=== PATIENT | female | born 1965 | race Caucasian/White ===

== ENCOUNTER 2016-04-28 10:32 | Emergency (ER) | payer BC ==
[2016-04-28 10:45] VITALS: RESP 18
[2016-04-28] MEDS ORDERED: SODIUM CHLORIDE 0.9% 1,000 ML IV STA (10:54)
[2016-04-28] MEDS ORDERED: METOCLOPRAMIDE 5 MG/ML 2 ML VIAL IVP STA (10:54)
[2016-04-28 11:33] LABS: Basophils # (A) 0.1 k/uL (0-0.2); Basophils % (A) 2 %; CH 31.4; CHCM 33.8; Eosinophils # (A) 0.1 k/uL (0-0.7); Eosinophils % (A) 1 %; HCT 46.8 % (34.0-46.0); HDW 2.66; HGB 15.1 gm/dL (11.4-16.0); Luc # (Auto) 0.13; Luc % (Auto) 2; Lymphocytes # (A) 1.6 k/uL (1.0-4.8); Lymphocytes % (A) 20 %; MCH 30.2 pg (25.0-35.0); MCHC 32.3 g/dL (31.0-37.0); MCV 93.4 fL (80.0-100.0); Mean Platelet Volume 7.7; Monocytes # (A) 0.5 k/uL (0-1.0); Monocytes % (A) 6 %; Neutrophils # (A) 5.8 k/uL (1.3-7.7); Neutrophils % (A) 70 %; RBC 5.01 m/uL (3.80-5.40); RDW 13.4 % (11.5-15.5); WBC 8.3 k/uL (3.8-10.6); WBC (Perox) 7.97
--- NOTE | 2016-04-28 11:41 | XR ---
EXAMINATION TYPE: XR KUB DATE OF EXAM: 04/28/2016 11:37 AM COMPARISON: 09/13/2013 HISTORY: Pain TECHNIQUE: One view abdominal series FINDINGS: The osseous structures are intact. The bowel gas pattern is nonspecific. Surgical clips in the right upper quadrant. Calcifications in the pelvis are likely vascular. Soft tissue ossification adjacent to the right greater trochanter. Arthropathy of the hips. There are scattered air-fluid levels. IMPRESSION: 1. Nonspecific abdomen. Scattered air-fluid levels seen enteritis or ileus.
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
[2016-04-28 11:48] LABS: ALT 74 U/L (9-52); AST 40 U/L (14-36); Alkaline Phosphatase 135 U/L (38-126); Amylase 42 U/L (30-110); Anion Gap 14 mmol/L; Blood Urea Nitrogen 21 mg/dL (7-17); Calcium 9.2 mg/dL (8.4-10.2); Carbon Dioxide 25 mmol/L (22-30); Chloride 105 mmol/L (98-107); Glucose 95 mg/dL (74-99); Non-African American GFR(MDRD) >60 (>60 ml/min/1.73 sqM); Potassium 4.1 mmol/L (3.5-5.1); Sodium 144 mmol/L (137-145); Total Bilirubin 1.1 mg/dL (0.2-1.3); Total Protein 7.9 g/dL (6.3-8.2)
[2016-04-28 11:49] LABS: Amorphous Sediment,Urine Rare /hpf; Appearance,Urine Cloudy (Clear); Bacteria,Urine Rare /hpf; Bilirubin,Urine Negative (Negative); Glucose,Urine (UA) Negative (Negative); Ketones,Urine Negative (Negative); Leukocyte Esterase,Urine Small (Negative); Mucus,Urine Many /hpf; Nitrite,Urine Negative (Negative); PH, Urine 5.5 (5.0-8.0); Particle Count 9427; Protein,Urine Trace (Negative); RBC,Urine 3 /hpf (0-5); Specific Gravity,Urine 1.027 (1.001-1.035); Squamous Epithelial Cell,Urine 5 /hpf (0-4); UA Billing (MACRO vs. MICRO) MICRO; Urobilinogen,Urine <2.0 mg/dL (<2.0); WBC,Urine 9 /hpf (0-5)
[2016-04-28 12:36] VITALS: BP 114/69; PULSE 79; TEMP 97.9
== END 2016-04-28 12:35 | disposition home or self-care (01) ==
LOC: EC 10:32
DX: K52.9 Noninfective gastroenteritis and colitis, unspecified (principal); Z79.899 Other long term (current) drug therapy; Z90.49 Acquired absence of other specified parts of digestive tract
CPT/HCPCS: 99284; 96374; 96361; 36415; 80053; 82150; 83690; 85025; 81001; 74000; J2765

== ENCOUNTER → 2016-07-19 | Outpatient (CLI) | payer BC ==
--- NOTE | 2016-07-21 10:26 | MM ---
Reason for exam: screening (asymptomatic). Last mammogram was performed 3 years and 10 months ago. History: Patient is postmenopausal. Physical Findings: A clinical breast exam by your physician is recommended on an annual basis and results should be correlated with mammographic findings. MG Screening Mammo w CAD Bilateral CC and MLO view(s) were taken. Prior study comparison: September 06, 2012, bilateral digital screening mammo w/CAD. June 02, 2008, bilateral digital screening mammogram. The breast tissue is heterogeneously dense. This may lower the sensitivity of mammography. Benign calcifications. There is chronic nodularity in the left breast stable. No significant changes when compared with prior studies. ASSESSMENT: Benign, BI-RAD 2 RECOMMENDATION: Routine screening mammogram of both breasts in 1 year.
== END | disposition home or self-care (01) ==
LOC: RADMAMWWP 10:47
PROVIDERS: ATTEND Family Medicine
DX: Z12.31 Encounter for screening mammogram for malignant neoplasm of breast (principal)

== ENCOUNTER 2016-09-12 12:50 | Emergency (ER) | payer BC ==
[2016-09-12] MEDS ORDERED: diphenhydrAMINE 50 MG/ML 1 ML VIAL IM STA (13:54)
[2016-09-12] MEDS ORDERED: methylPREDNISolone SOD SUCCI 125 MG/2 ML VIAL IM STA (13:54)
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
[2016-09-12] MEDS ORDERED: FAMOTIDINE 20 MG TAB PO STA (13:55)
[2016-09-12 14:31] VITALS: BP 127/68; PULSE 70; RESP 18; TEMP 98.3
== END 2016-09-12 14:31 | disposition home or self-care (01) ==
LOC: EC 12:50
DX: L50.9 Urticaria, unspecified (principal); R30.0 Dysuria; Z88.0 Allergy status to penicillin; Z91.09 Other allergy status, other than to drugs and biological substances; Z79.899 Other long term (current) drug therapy
CPT/HCPCS: 99283; 96372 ×2; J1200; J2930

== ENCOUNTER → 2016-09-18 | Outpatient (CLI) | payer BC ==
--- NOTE | 2016-09-18 14:10 | CT ---
EXAMINATION TYPE: CT sinus wo con DATE OF EXAM: 09/18/2016 COMPARISON: None HISTORY: Chronic sinusitis CT DLP: 630.8 mGycm. Automated Exposure Control for Dose Reduction was Utilized. TECHNIQUE: CT scan of the sinuses is performed without contrast, axial images are obtained, coronal r eformatted images are also reviewed. FINDINGS: There is a slight nasal septal deviation. Ostiomeatal complex is patent bilaterally with mi ld mucosal thickening at the origin of the right. There is a small mucous retention cyst or polyp ralph ng the inferior maxillary antrum on the right. Frontal sinuses hypoplastic. Ethmoid air cells demonstrate no significant mucosal thickening. There a re no air-fluid levels. Intraorbital structures have a normal appearance. Intracranial structures have a normal appearance. N asopharynx and oropharynx symmetric. IMPRESSION: 1. Changes of minimal chronic sinusitis.
== END ==
LOC: RADCTMAIN 13:39
PROVIDERS: ATTEND Otolaryngology
DX: J32.9 Chronic sinusitis, unspecified (principal)
CPT/HCPCS: 70486

== ENCOUNTER → 2016-12-22 | Outpatient (CLI) | payer OTHER | END | disposition home or self-care (01) | LOC: LABWHC1 14:41 | PROVIDERS: ATTEND Surgery | DX: Z52.4 Kidney donor (principal) | CPT/HCPCS: 36415; 86900; 86901 ==

== ENCOUNTER → 2018-07-22 | Outpatient (CLI) | payer BC | LOC: RADECHMAIN 12:12 | PROVIDERS: ATTEND Family Medicine | DX: I49.1 Atrial premature depolarization (principal); I49.3 Ventricular premature depolarization | CPT/HCPCS: 93225; 93226 ==

== ENCOUNTER → 2022-02-11 | Outpatient (CLI) | payer BC ==
--- NOTE | 2022-02-12 09:03 | XR ---
EXAMINATION TYPE: XR soft tissue neck DATE OF EXAM: 02/11/2022 COMPARISON: None HISTORY: 56-year-old female neck pain, M54.2,M25.551,M54.50 TECHNIQUE: Frontal and lateral views FINDINGS: There is tapering of the subglottic airway on the frontal view. No prevertebral soft tissue swelling. Nasopharyngeal, oropharyngeal, hypopharyngeal airways appear patent. There is anterior endplate spon dylosis particularly at C4-C5 and C6-C7. Prominent disc osteophyte complex projecting forward at C4-C 5 by 5 mm, probably pressing against the back wall of the upper cervical esophagus. Normal epiglottis . IMPRESSION: 1. Apparent tapering of the subglottic airway on the frontal view. Unclear if this is due to phase of patient's breathing. Findings may be seen in the setting of croup or other infectious etiology. Clin ically correlate. 2. Anterior cervical spondylosis especially at C4-C5 and C6-C7. At C4-C5, there is a spur disc comple x projecting 5 mm in front of the vertebral bodies. This may press against the back wall of the upper cervical esophagus. 3. Otherwise, patent airway.
--- NOTE | 2022-02-12 09:05 | XR ---
EXAMINATION TYPE: XR lumbar spine 3V DATE OF EXAM: 02/11/2022 Comparison: CT 09/13/2013 Clinical History: 56-year-old female low back pain for years, M54.2,M25.551,M54.50 Findings: Cholecystectomy clips. Slight dextroconvex curvature of the lumbar spine. 5 lumbar type vertebral bod ies. Hypertrophic facet arthropathy mid to lower lumbar spine. There is grade 2 anterolisthesis at L5 -S1 with moderate to severe degenerative disc disease here. Possible bilateral L5 pars defects. Other watson, vertebral body heights and remaining alignment is maintained. Impression: 1. Grade 2 anterolisthesis at L5-S1 with associated moderate to severe degenerative disc disease. Thi s is secondary to bilateral L5 spondylolysis as seen on CT of 09/13/2013. 2. Additional facet arthropathy mid to lower lumbar spine.
--- NOTE | 2022-02-12 09:08 | XR ---
EXAMINATION TYPE: XR Hip Bilateral Complete DATE OF EXAM: 02/11/2022 COMPARISON: NONE HISTORY: 56-year-old female with bilateral hip pain for years TECHNIQUE: 2 views each side FINDINGS: There appears to be some type of retained metal pin fragment measuring 1.3 cm long at the lateral int ertrochanteric region of the proximal right femur. There is a 3.0 cm corticated bone fragment just ab ove the greater trochanter, likely old motion fracture fragment versus heterotopic ossification. Ther e is mild marginal spurring in both hips. Some enthesopathy noted at the left lesser trochanter. Pelv ic phleboliths. No acute fracture, subluxation, dislocation. IMPRESSION: 1. A 1.3 cm long retained metal fragment in the lateral intertrochanteric region of the proximal righ t femur. Correlate as to any previous surgeries. 2. A 3 cm bone fragment above the right greater trochanter suggests sequela of prior avulsion fractur e or heterotopic ossification. 3. Mild bilateral hip OA.
== END | disposition home or self-care (01) ==
LOC: RADXRMAIN 16:44
PROVIDERS: ATTEND Family Medicine
DX: M16.0 Bilateral primary osteoarthritis of hip (principal); M47.812 Spondylosis without myelopathy or radiculopathy, cervical region; M43.16 Spondylolisthesis, lumbar region; M51.37 Other intervertebral disc degeneration, lumbosacral region; M43.17 Spondylolisthesis, lumbosacral region; M47.816 Spondylosis without myelopathy or radiculopathy, lumbar region; Z18.12 Retained nonmagnetic metal fragments
CPT/HCPCS: 70360; 72100; 73521

== ENCOUNTER 2022-03-17 08:44 | Emergency (ER) | payer BC ==
[2022-03-17 08:50] VITALS: TEMP 97.9
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
[2022-03-17 10:28] LABS: Basophils # (A) 0.1 k/uL (0-0.2); Basophils % (A) 1 %; Eosinophils # (A) 0.1 k/uL (0-0.7); Eosinophils % (A) 1 %; HCT 49.9 % (34.0-46.0); HGB 16.8 gm/dL (11.4-16.0); Lymphocytes # (A) 1.7 k/uL (1.0-4.8); Lymphocytes % (A) 17 %; MCH 30.7 pg (25.0-35.0); MCHC 33.7 g/dL (31.0-37.0); MCV 91.1 fL (80.0-100.0); Mean Platelet Volume 8.1; Monocytes # (A) 0.9 k/uL (0-1.0); Monocytes % (A) 9 %; Neutrophils # (A) 6.9 k/uL (1.3-7.7); Neutrophils % (A) 70 %; Platelet Count 241 k/uL (150-450); RBC 5.48 m/uL (3.80-5.40); RDW 13.2 % (11.5-15.5)
[2022-03-17] MEDS ORDERED: SODIUM CHLORIDE 0.9% 1,000 ML IV STA (10:31)
[2022-03-17] MEDS ORDERED: ONDANSETRON 4 MG/2 ML VIAL IVP STA (10:32)
[2022-03-17 10:37] LABS: Potassium 3.8 mmol/L (3.5-5.1)
[2022-03-17 10:38] LABS: Albumin 4.7 g/dL (3.5-5.0); Calcium 9.3 mg/dL (8.4-10.2); Total Bilirubin 1.2 mg/dL (0.2-1.3)
--- NOTE | 2022-03-17 10:56 | XR ---
EXAMINATION TYPE: XR abdomen 1V DATE OF EXAM: 03/17/2022 Comparison: 04/28/2016 Clinical History: 56-year-old female abdominal pain Findings: Lung bases are clear. No evidence for free intraperitoneal air. No significant stool burden. No dilated small bowel or differential air-fluid levels seen. However, air-fluid levels are present throughout the colon. Cholecystectomy clips. Multiple pelvic phlebolith. Impression: Liquid stool suggesting diarrheal state such as relating to ileus or enteritis. No evidence for free air or bowel obstruction.
[2022-03-17] MEDS ORDERED: DIPHENOX-ATROP STARTER PACK 8 TAB BTL PO STA (11:19)
[2022-03-17 12:22] VITALS: BP 114/69; PULSE 82; RESP 18
== END 2022-03-17 12:22 | disposition home or self-care (01) ==
LOC: EC 08:44 → SUPCPDRO 08:44 → EC 12:22
DX: K52.9 Noninfective gastroenteritis and colitis, unspecified (principal); J45.909 Unspecified asthma, uncomplicated; Z90.49 Acquired absence of other specified parts of digestive tract; Z88.0 Allergy status to penicillin; Z91.018 Allergy to other foods
CPT/HCPCS: 36415; 80053; 83605; 83690; 85025; 87502; 87635; 74018; 99284; 96374; 96361 ×2; J2405

== ENCOUNTER → 2022-03-19 | Outpatient (CLI) | payer BC ==
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
--- NOTE | 2022-03-20 18:45 | MM ---
Reason for Exam: Screening (asymptomatic). Last mammogram was performed 5 year(s) and 8 month(s) ago. Patient History: Menarche at age 14. First Full-Term at age 18. Left ovary removed at age 39. Right ovary removed at age 39. Postmenopausal. Risk Values: Elenita 5 year model risk: 0.8%. NCI Lifetime model risk: 6.0%. Prior Study Comparison: 06/02/2008 Bilateral Screening Mammogram, [facility]. 09/06/2012 Bilateral Screening Mammogram, [facility]. 07/19/2016 Bilateral Screening Mammogram, [facility]. Tissue Density: There are scattered fibroglandular densities. Findings: Analyzed By CAD. There is no suspicious group of microcalcifications or new suspicious mass in either breast. Overall Assessment: Negative, BI-RAD 1 Management: Screening Mammogram of both breasts in 1 year. 1. Patient should continue monthly self breast exams. 2. A clinical breast exam by your physician is recommended on an annual basis. 3. This exam should not preclude additional follow-up of suspicious palpable abnormalities. Electronically signed and approved by: Mari Yates M.D. Radiologist
== END | disposition home or self-care (01) ==
LOC: RADBDWWP 15:54
PROVIDERS: ATTEND Family Medicine
DX: Z12.31 Encounter for screening mammogram for malignant neoplasm of breast (principal); Z13.820 Encounter for screening for osteoporosis; M85.89 Other specified disorders of bone density and structure, multiple sites; Z78.0 Asymptomatic menopausal state
CPT/HCPCS: 77067; 77080

== ENCOUNTER → 2022-04-09 | Outpatient (CLI) | payer BC ==
--- NOTE | 2022-04-09 20:03 | MR ---
EXAMINATION TYPE: MR cervical spine wo con DATE OF EXAM: 04/09/2022 INDICATION: Patient age:Female; 56 years old; Reason for study: M54.12 RADICULOPATHY, CERVICAL REGION; Neck and left shoulder pain, numbness/tingli ng down right arm. COMPARISON: None. TECHNIQUE: Multi planar, multi sequence imaging was performed utilizing: T1-weighted, T2-weighted, an d turbo inversion recovery imaging of the cervical spine. IV Contrast: None FINDINGS: Alignment: The cervical vertebral bodies have preserved heights. Alignment is within normal limits gi iram patient positioning. Bones: Scattered Modic endplate changes with osteophytes and disc space narrowing. Multilevel degener ative disc disease is noted and most pronounced at the C5-C7 vertebral levels. High T2/T1 signal lesion within the C5 vertebrae most consistent with vertebral body hemangioma. Cord: The spinal cord is unremarkable with regards to their signal intensity and morphology. Discs: Multilevel disc desiccation is present. C2-C3: No significant disc pathology. The spinal canal is patent. No neural foraminal stenosis. C3-C4: A disc osteophyte complex is present which minimally narrows the ventral subarachnoid space. No neural foraminal stenosis. C4-C5: A disc osteophyte complex is present with moderate spinal canal stenosis. Bilateral facet and uncovertebral joint arthropathy are present with moderate bilateral neural foraminal stenosis. C5-C6: A disc osteophyte complex is present with moderate spinal canal stenosis. Bilateral facet and uncovertebral joint arthropathy are present with moderate bilateral neural foraminal stenosis. C6-C7: No significant disc pathology. The spinal canal is patent. Bilateral facet and uncovertebral joint arthropathy are present with moderate bilateral neural foraminal stenosis. C7-T1: No significant disc pathology. The spinal canal is patent. No neural foraminal stenosis. IMPRESSION: No evidence for disc herniation. Moderate C4-C5 and C5-C6 spinal canal stenosis. Multilevel disc degeneration with associated osteoarthritic changes worse at C4-C5, C5-C6 and C6-C7 w ith at least moderate bilateral neural foraminal stenosis.
== END | disposition home or self-care (01) ==
LOC: RADMRIMAIN 16:42
PROVIDERS: ATTEND Orthopaedic Surgery Orthopaedic Surgery of the Spine
DX: M50.121 Cervical disc disorder at C4-C5 level with radiculopathy (principal); M47.22 Other spondylosis with radiculopathy, cervical region; M25.78 Osteophyte, vertebrae; M43.12 Spondylolisthesis, cervical region; M48.02 Spinal stenosis, cervical region; M99.71 Connective tissue and disc stenosis of intervertebral foramina of cervical region
CPT/HCPCS: 72141

== ENCOUNTER → 2024-03-28 | Outpatient (CLI) | payer BC ==
--- NOTE | 2024-03-28 15:52 | MM ---
Reason for Exam: Screening (asymptomatic). Last mammogram was performed 2 year(s) and 0 month(s) ago. Patient History: Menarche at age 14. First Full-Term at age 18. Left ovary removed at age 39. Right ovary removed at age 39. Postmenopausal. Risk Values: Elenita 5 year model risk: 0.9%. NCI Lifetime model risk: 5.7%. Prior Study Comparison: 09/06/2012 Bilateral Screening Mammogram, [facility]. 07/19/2016 Bilateral Screening Mammogram, [facility]. 03/19/2022 Bilateral MG screening mammo w CAD, [facility]. Tissue Density: There are scattered areas of fibroglandular density. Analyzed By CAD. Overall Assessment: Negative, BI-RAD 1 Management: Screening Mammogram of both breasts in 1 year. Electronically signed and approved by: Roshan Hernandez M.D.
== END | disposition home or self-care (01) ==
LOC: RADMAMWWP 14:47
PROVIDERS: ATTEND Internal Medicine Geriatric Medicine
DX: Z12.31 Encounter for screening mammogram for malignant neoplasm of breast (principal); Z90.722 Acquired absence of ovaries, bilateral; Z78.0 Asymptomatic menopausal state; R92.323 Mammographic fibroglandular density, bilateral breasts
CPT/HCPCS: 77067